=== PATIENT | female | born 1945 | race Caucasian/White ===

== ENCOUNTER 2017-02-04 09:12 | Inpatient (IN) | payer OTHER ==
[~2017-02-04 09:12] MED LIST: ACETAMINOPHEN 325 MG TAB PO ONE; CEFAZOLIN 2 GM/DEXTR 100 ML IV ONE; CHLORHEXIDINE GLUC HIBICLENS 118 ML BTL TP ONE; FAMOTIDINE 20 MG TAB PO ONE; ROPI/epiNEPH/KETOROLAC JOINT COCKTAIL IU ONE; TRANEXAMIC ACID 3,000 MG in NS 50 ML IRR ONE
[2017-02-04] MEDS ORDERED: BUPIVACAINE/EPI 0.5% 30 ML SDV ONE (09:22)
[2017-02-04] MEDS ORDERED: TRANEXAMIC ACID 3,000 MG/50 ML BAG IRR ONE (09:23)
[2017-02-04] MEDS ORDERED: BUPIVACAINE 0.5% 30 ML SDV ONE (09:23)
[2017-02-04] MEDS ORDERED: BUPIVACAINE 0.25% 30 ML SDV ONE (09:23)
[2017-02-04] MEDS ORDERED: VANCOMYCIN 1 GM VIAL ONE (09:23)
[2017-02-04] MEDS ORDERED: CEFAZOLIN 2 GM/DEXTROSE/100 ML BAG IV ONE (09:49)
[2017-02-04] MEDS ORDERED: ACETAMINOPHEN 325 MG TAB ONE ×2 (09:49→14:46)
[2017-02-04] MEDS ORDERED: LIDOCAINE 1% 2 ML INJ ONE (09:49)
[2017-02-04] MEDS ORDERED: FAMOTIDINE 20 MG TAB ONE (09:49)
[2017-02-04] MEDS ORDERED: MIDAZOLAM 2 MG/2 ML VIAL ONE (10:59)
[2017-02-04] MEDS ORDERED: LIDOCAINE 2% 5 ML SDV ONE (11:13)
[2017-02-04] MEDS ORDERED: PROPOFOL/EMULSION 500 MG/50 ML BOTTLE IV ONE (11:13)
[2017-02-04] MEDS ORDERED: POLYETHYLENE GLYCOL 3350 17 GM PKT PO PRN (12:30)
[2017-02-04] MEDS ORDERED: PHARMACY PAIN CONSULT 1 EA MISC PRN (12:30)
[2017-02-04] MEDS ORDERED: LACTULOSE 20 GM/30 ML UDCUP PO PRN (12:30)
[2017-02-04] MEDS ORDERED: PROMETHAZINE HCL 25 MG/ML INJ IVP PRN (12:30)
[2017-02-04] MEDS ORDERED: PROMETHAZINE HCL 25 MG SUPPR PR PRN (12:30)
[2017-02-04] MEDS ORDERED: DIPHENOXYLATE/ATROPINE LOMOTIL 1 TAB PO PRN (12:30)
[2017-02-04] MEDS ORDERED: LR 1,000 ML IV SCH (12:30)
[2017-02-04] MEDS ORDERED: ONDANSETRON DISINTEGRATING 4 MG TAB PO PRN (12:30)
[2017-02-04] MEDS ORDERED: TEMAZEPAM 15 MG CAP PO PRN (12:30)
[2017-02-04] MEDS ORDERED: ONDANSETRON 4 MG/2 ML VIAL IVP PRN (12:30)
[2017-02-04] MEDS ORDERED: MAGNESIUM HYDROXIDE 30 ML UDCUP PO PRN (12:30)
[2017-02-04] MEDS ORDERED: METOCLOPRAMIDE 10 MG/2 ML VIAL IVP PRN (12:30)
[2017-02-04] MEDS ORDERED: BISACODYL 10 MG SUPP PR PRN (12:30)
--- NOTE | 2017-02-04 12:30 | POSTOPPROG ---
Post Op Note Date of Operation: 02/04/17 Surgeon: Salvatore Greer Manager Disaster Recovery: bay greer Anesthesiologist: dr. waters Anesthesia: Spinal, Other (Specify) (adductor canal block) Pre-op Diagnosis: leftk nee OA Post-op Diagnosis: same Indication: left knee pain due to OA that failed conservative measures Procedure: L TKA Findings: severe knee OA Inf/Abcess present in the surg proc area at time of surgery?: No EBL: 50-100
[2017-02-04] MEDS ORDERED: ROPIVACAINE HCL 150 MG/30 ML INJ ONE (12:31)
[2017-02-04] MEDS ORDERED: SUMAtriptan 50 MG TAB PO PRN (12:31)
[2017-02-04] MEDS ORDERED: oxyCODONE IR 5 MG TAB ONE (14:46)
[2017-02-04] MEDS ORDERED: CYCLOBENZAPRINE 10 MG TAB ONE (14:46)
[2017-02-04] MEDS: CYCLOBENZAPRINE 10 MG TAB PO PRN (15:10)
[2017-02-04] MEDS: metFORMIN HCL 500 MG TAB PO SCH (17:25)
[2017-02-04] MEDS: WARFARIN SODIUM 5 MG TAB PO SCH (17:26)
[2017-02-04] MEDS: traMADol 50 MG TAB PO SCH ×2 (17:26→21:34)
[2017-02-04] MEDS: ceFAZolin 2 GM/DEXTROSE 100 ML IV SCH (17:27)
[2017-02-04] MEDS: ACETAMINOPHEN 325 MG TAB PO SCH (17:29)
[2017-02-04] MEDS: SENNOSIDES/DOCUSATE SODIUM TAB PO SCH (19:58)
[2017-02-04] MEDS: oxyCODONE IR 5 MG TAB PO PRN (19:58)
[2017-02-04] MEDS: FAMOTIDINE 20 MG TAB PO SCH (19:58)
[2017-02-04] MEDS: PREGABALIN 75 MG CAP PO SCH (19:58)
[2017-02-04] MEDS: ZOLPIDEM TARTRATE 5 MG TAB PO SCH (21:33)
--- NOTE | 2017-02-05 00:07 | GOP ---
[f rep st] OPERATIVE REPORT DATE OF OPERATION: 02/04/17 SURGEON: Tariq Velez MD MOTOR POOL DRIVER: WILMA Reddy ANESTHESIA: Spinal. PREOPERATIVE DIAGNOSIS: Left knee osteoarthritis. POSTOPERATIVE DIAGNOSIS: Left knee osteoarthritis. PROCEDURE PERFORMED: Left total knee arthroplasty. FINDINGS: ESTIMATED BLOOD LOSS: 30 cc. INDICATIONS: This is a 71-year-old female with severe and progressive pain and deformity of the left knee unresponsive to conservative care. Risks and benefits of the surgical intervention were explained in detail. DESCRIPTION OF PROCEDURE: The patient was brought to the operative room and placed on the table in the supine position. Spinal anesthesia was induced without difficulty. A pneumatic tourniquet was applied about the left proximal thigh, and the leg was prepped and draped in a sterile fashion. The leg pineda was applied. After exsanguination by elevation the tourniquet was inflated to 275 mm of mercury. Incision was made anterior medial from the tibial tuberosity to a point 2 cm proximal to the superior pole of the patella. Medial parapatellar arthrotomy was carried out from the superior pole of the patella and posteriorly in line with the fibers of the Type 2 VMO. Pathology severe medial patellofemoral osteoarthritis. The medial collateral ligament was elevated and the infrapatellar fat pad was resected. The patella was everted and the articular surface was excised. A 35 mm patellar button was placed. The distal femoral guide hole was drilled and the 6- degree alignment osman was placed. An 8 mm distal femoral cut was made without difficulty. Attention was turned to the tibia and a standard 9 mm cut based on the lateral tibial condyle was performed. The tibial articular surface was excised without difficulty. Attention was turned back to the femur and a size 4 Triathlon femoral cutting block was positioned. Anterior, posterior, and chamfer cuts were made, followed by the intercondylar box cut. The knee was extended and the remnants of the medial and lateral meniscus were excised. The posterior capsule was injected with ropivacaine, epinephrine and Toradol. A size 3 MIS mini-keel tibial tray was positioned. Trial reduction was then carried out. There was excellent range of motion, alignment, and stability using the 9 mm polyethylene. All trials were then removed. The joint was thoroughly irrigated and carefully dried. Two packages of cement and 2 grams of vancomycin were mixed in the vacuum mixer and placed on the fixation surfaces of all surfaces of the components. The components were implanted and all excess cement was thoroughly removed. The permanent 9 mm polyethylene was placed without difficulty. The tourniquet was deflated and all bleeders were coagulated. The wound was thoroughly irrigated and closed using interrupted sutures of 2-0 Vicryl for the joint capsule. The subcu was closed with 3-0 Vicryl and the skin with 4-0 Monocryl. Dermabond and Steri-Strips were applied followed by a compressive dressing. The patient was then moved from the operating room to the recovery room in good condition, having tolerated the procedure well. /[id number]/MODL MTDD
[2017-02-05] MEDS: ACETAMINOPHEN 325 MG TAB PO SCH ×5 (00:46→23:01)
[2017-02-05] MEDS: ceFAZolin 2 GM/DEXTROSE 100 ML IV SCH (00:46)
[2017-02-05] MEDS: CYCLOBENZAPRINE 10 MG TAB PO PRN ×2 (00:47→19:27)
[2017-02-05 05:20] LABS: INR 1.07 (0.83-1.16); PROTIME(PATIENT) 13.8 SEC (12.0-15.0)
[2017-02-05 05:24] LABS: HEMATOCRIT 38.8 % (38.0-47.0); HEMOGLOBIN 12.5 g/dL (12.6-16.3)
[2017-02-05] MEDS: LEVOTHYROXINE 88 MCG TAB PO SCH (05:28)
[2017-02-05] MEDS: oxyCODONE IR 5 MG TAB PO PRN ×4 (05:29→20:09)
[2017-02-05] MEDS: buPROPion XL 150 MG TAB PO SCH (07:32)
[2017-02-05] MEDS: diphenhydrAMINE 25 MG CAP PO PRN ×2 (07:32→23:01)
[2017-02-05] MEDS: SENNOSIDES/DOCUSATE SODIUM TAB PO SCH ×2 (07:34→20:08)
[2017-02-05] MEDS: metFORMIN HCL 500 MG TAB PO SCH ×2 (07:35→18:17)
[2017-02-05] MEDS: FAMOTIDINE 20 MG TAB PO SCH ×2 (07:35→20:08)
[2017-02-05] MEDS: ENOXAPARIN 40 MG/0.4 ML SYR SC SCH (07:36)
[2017-02-05] MEDS: PREGABALIN 75 MG CAP PO SCH ×2 (07:36→18:20)
[2017-02-05] MEDS: traMADol 50 MG TAB PO SCH ×3 (09:37→22:25)
--- NOTE | 2017-02-05 13:32 | SOAPPROG ---
SOAP Progress Note Assessment/Plan: Assessment: Patient is doing well POD 1 s/p L TKA Pain management: pain is well controlled on oral pain meds. VTE ppx: recommend coumadin and lovenox, cont NERY and SCDs Anemia: level is expected initially postop. Asymptomatic. Continue to monitor D/c planning: d/c to home tomorrow pending release from PT with support of HH RN and PT for blood draws Plan: 02/05/17 13:30 Subjective: Laly is doing well today, denies SOB, chest pain and N/V. pleased with recovery so far Objective: Vital Signs Temp Pulse Resp BP Pulse Ox 36.5 C 64 16 111/71 94 02/05/17 13:09 02/05/17 13:09 02/05/17 13:09 02/05/17 13:09 02/05/17 13:09 Laboratory Results 02/05/17 04:25 02/04/17 02/05/17 02/06/17 05:59 05:59 05:59 Intake Total 2650 100 Output Total 1430 750 Balance 1220 -650 PT 13.8 SEC (12.0-15.0) 02/05/17 04:25 INR 1.07 (0.83-1.16) 02/05/17 04:25 LLE: incision dressing is clean and dry, NVI, +pf/df ICD10 Worksheet Patient Problems: Problems Problem Status Onset Primary localized osteoarthritis of left knee Acute
--- NOTE | 2017-02-05 14:17 | GDS ---
[f rep st] DISCHARGE SUMMARY ADMISSION DIAGNOSIS: Left knee osteoarthritis. DISCHARGE DIAGNOSIS: Left knee osteoarthritis. PROCEDURE: Left total knee arthroplasty. VTE PROPHYLAXIS: Coumadin and Lovenox recommended. BRIEF DESCRIPTION OF HOSPITAL STAY: Patient was admitted for an elective joint arthroplasty. The p atient tolerated the procedure well and has passed physical therapy. The patient was given appropri ate antibiotic prophylaxis and venous thromboembolism prophylaxis. The patient's pain was well cont rolled on oral pain medication, patient was holding down food, and had urinated. Decision was made to discharge the patient. The patient was given post-operative prescriptions pre-operatively. PLAN: Please follow up as scheduled, February 19, 2017, at 11:00 a.m. /[id number]/MODL
[2017-02-05] MEDS: WARFARIN SODIUM 5 MG TAB PO SCH (15:54)
[2017-02-05] MEDS: ZOLPIDEM TARTRATE 5 MG TAB PO SCH (22:25)
[2017-02-05 22:58] VITALS: RESP 16
[2017-02-06] MEDS: oxyCODONE IR 5 MG TAB PO PRN ×3 (05:05→12:25)
[2017-02-06] MEDS: ACETAMINOPHEN 325 MG TAB PO SCH ×2 (05:05→12:26)
[2017-02-06] MEDS: LEVOTHYROXINE 88 MCG TAB PO SCH (05:06)
[2017-02-06 05:07] LABS: HEMATOCRIT 39.2 % (38.0-47.0); HEMOGLOBIN 12.6 g/dL (12.6-16.3)
[2017-02-06 05:15] LABS: INR 1.08 (0.83-1.16); PROTIME(PATIENT) 13.9 SEC (12.0-15.0)
[2017-02-06 07:22] VITALS: BP 113/81; PULSE 73; TEMP 97.8
[2017-02-06] MEDS: metFORMIN HCL 500 MG TAB PO SCH (08:07)
[2017-02-06] MEDS: ENOXAPARIN 40 MG/0.4 ML SYR SC SCH (08:07)
[2017-02-06] MEDS: PREGABALIN 75 MG CAP PO SCH (08:07)
[2017-02-06] MEDS: buPROPion XL 150 MG TAB PO SCH (08:07)
[2017-02-06] MEDS: traMADol 50 MG TAB PO SCH ×2 (08:07→15:08)
[2017-02-06] MEDS: SENNOSIDES/DOCUSATE SODIUM TAB PO SCH (08:08)
[2017-02-06] MEDS: FAMOTIDINE 20 MG TAB PO SCH (08:08)
[2017-02-06 11:04] VITALS: O2SAT 79
--- NOTE | 2017-02-06 13:09 | PDFACE2FAC ---
Face to Face Encounter 1. I certify that this patient is under my care and that I, or a nurse practitioner or physician's financial administrative assistant working with me, had a atwo-[id number] encounter that meets the physician uflw-mr-[id number] encounter requirements with this patient on 02/06/17. 2. I certify that based on my findings, the following services are medically necessary home health services: [X Nursing] [X Physical Therapy] [ Speech-Language Pathology] 3. The medical condition and clinical findings that support the need for specialized skills, knowledge and judgement of the above services are: [s/p TKA needs assistance, cannot drive, on narcotics, needs labs drawn and PT twice weekly] 4. I certify this patient is homebound* because [the patient's condition restricts their ability to leave their home except with the assistance of another individual or the aid of a supportive device.] must use FWW, cannot drive on narcotics I certify that this patient is confined to his/her home and needs intermittent group home care, physical and/or speech therapy. This patient is under my care and I have authorized home health services. * Homebound is defined by Medicare as follows: absences from home require considerable and tacking effort and or for medical reasons or mandaeism services or are infrequent or of short duration when for other reasons*.
--- NOTE | 2017-02-06 13:11 | PDIAF ---
- Diagnosis Diagnosis: s/p L TKA Code Status: Full Code - Medication Management Discharge Medications: Medications to Continue on Transfer SUMAtriptan [Imitrex 50 MG (*)] 100 mg PO PRN PRN 04/01/13 [Last Taken 01/31/17] Zolpidem Tartrate [Ambien 5MG (*)] 10 mg PO HS 04/01/13 [Last Taken 02/03/17] metFORMIN HCL [Glucophage 500 mg (*)] 500 mg PO BIDMEAL 04/01/13 [Last Taken ] [place]-3 Fatty Acids [Fish Oil 1000 mg (*)] 1,000 mg PO DAILY 04/05/13 [Last Taken 01/21/17] Ergocalciferol [Vitamin D2 (*)] 50,000 unit PO SA 12/29/16 [Last Taken 01/21/17] Herbals/Supplements -Info Only 1 ea PO DAILY 12/29/16 [Last Taken 01/21/17] Levothyroxine [Synthroid 88 mcg (*)] 88 mcg PO DAILY06 12/29/16 [Last Taken ] Pregabalin [Lyrica 75mg (*)] 150 mg PO BID 12/29/16 [Last Taken 02/04/17] Promethazine HCl [Phenergan 25mg (*)] 25 mg PO DAILY PRN 12/29/16 [Last Taken Unknown] buPROPion XL [Wellbutrin 150mg XL] 300 mg PO DAILY 12/29/16 [Last Taken 02/04/17 ] traMADol [Ultram 50 mg (*)] 100 mg PO TID 12/29/16 [Last Taken 02/03/17] Acetaminophen [Tylenol 325mg (*)] 650 mg PO Q6HRS #0 tab 02/05/17 [Last Taken Unknown] Cyclobenzaprine [Flexeril 10 MG (*)] 10 mg PO Q8HRS PRN #0 tab 02/05/17 [Last Taken Unknown] Enoxaparin [Lovenox 40 MG (*)] 40 mg SC DAILY #0 syr 02/05/17 [Last Taken Unknown] Sennosides/Docusate Sodium [Senokot-S] 1 - 2 tab PO BID #0 tab 02/05/17 [Last Taken Unknown] Warfarin Sodium [Coumadin 5MG (*)] 5 mg PO DAILY AT 4PM #0 tab 02/05/17 [Last Taken Unknown] celeCOXIB [Celebrex (*)] 200 mg PO DAILY #0 cap 02/05/17 [Last Taken Unknown] oxyCODONE IR [Oxycodone Ir (*)] 5 - 10 mg PO Q3HRS PRN #0 tab 02/05/17 [Last Taken Unknown] Discharge Medications: Refer to the Discharge Home Medication list for PRN reason. - Orders Services needed: Home Care, Registered Nurse, Physical Therapy Home Care Face to Face: I certify that this patient was under my care and that I had the required slio-ud-[id number] encounter meeting the encounter requirements on the discharge day. My findings support the fact that the patient is homebound as defined in CMS Chapter 7 Medicare Benefits Manual 30.1.1, The condition of the patient is such that there exists a normal inability to leave home and consequently, leaving home would require a considerable and taxing effort. Oxygen: on oxygen 24H until follow up with PCP Diet Recommendation: no restrictions on diet Diet Texture: Regular Texture Diet Abdi Stockings Discontinue Date: daytime x 2 weeks, off at night Wound Care Instructions: remove dressing in 2 weeks, cover for showers Activity/Weight Bearing Restrictions: WBAT - Labs/Radiology PT/INR Date: 02/10/17 (every Thursday and morning x 3 weeks. Call alcon with results at [facility] [phone]) - Follow Up Care Current Providers and Referrals: Salvatore Velez MD [Medical Doctor] - 02/19/17 11:00 am Saturnino Bradley MD [Primary Care Provider] -
--- NOTE | 2017-02-06 14:50 | SOAPPROG ---
SOAP Progress Note Assessment/Plan: Assessment: Patient is doing well POD 2 s/p L TKA Pain management: pain is well controlled on oral pain meds. VTE ppx: recommend coumadin and lovenox, cont NERY and SCDs Anemia: level is expected initially postop. Asymptomatic. Continue to monitor D/c planning: d/c to home tomorrow pending release from PT with support of HH RN and PT for blood draws oxygen sat: recommend home O2 Plan: 02/05/17 13:30 02/06/17 14:49 Subjective: Laly is doing well. Denies SOB, chest pain and N/V. Objective: Vital Signs Temp Pulse Resp BP Pulse Ox 36.6 C 73 16 113/81 H 79 L 02/06/17 07:21 02/06/17 07:21 02/06/17 07:21 02/06/17 07:21 02/06/17 09:55 Laboratory Results 02/06/17 04:20 02/05/17 02/06/17 02/07/17 05:59 05:59 05:59 Intake Total 2650 1100 Output Total 1430 1900 600 Balance 1220 -800 -600 PT 13.9 SEC (12.0-15.0) 02/06/17 04:20 INR 1.08 (0.83-1.16) 02/06/17 04:20 LLE; incision dressing is clean and dry ICD10 Worksheet Patient Problems: Problems Problem Status Onset Primary localized osteoarthritis of left knee Acute
[2017-02-06] MEDS: WARFARIN SODIUM 5 MG TAB PO SCH (15:08)
== END 2017-02-06 16:17 | disposition home health service (06) | DRG 470 ==
LOC: F3N 09:12
PROVIDERS: ADMIT Orthopaedic Surgery; ATTEND Orthopaedic Surgery
PROC: 0SRD0J9 Replacement of Left Knee Joint with Synthetic Substitute, Cemented, Open Approach (ICD-10-PCS; principal; 2017-02-04 11:15)
DX: M17.12 Unilateral primary osteoarthritis, left knee (principal); I10 Essential (primary) hypertension; E11.9 Type 2 diabetes mellitus without complications; E03.9 Hypothyroidism, unspecified; E78.5 Hyperlipidemia, unspecified
CPT/HCPCS: 97110-GP; 97116-GP; 97161-GP; 97165-GO; 97530-GP; 97535-GO; C1713; G8978-GP-CK; G8979-GP-CI; G8980-GP-CI; G8987-GO-CI; G8988-GO-CI; G8989-GO-CI; J0171; J0690; J1650; J1885; J2250; J2550; J2704; J2795; J3370

== ENCOUNTER → 2017-05-26 | Outpatient (CLI) | payer OTHER | LOC: FIMAGING 10:58 | PROVIDERS: ATTEND Orthopaedic Surgery | DX: M79.661 Pain in right lower leg (principal) ==

== ENCOUNTER 2018-07-28 11:57 | Inpatient (IN) | payer OTHER ==
[~2018-07-28 11:57] MED LIST changes: -ACETAMINOPHEN 325 MG TAB PO ONE; -CEFAZOLIN 2 GM/DEXTR 100 ML IV ONE; -CHLORHEXIDINE GLUC HIBICLENS 118 ML BTL TP ONE; -FAMOTIDINE 20 MG TAB PO ONE; -ROPI/epiNEPH/KETOROLAC JOINT COCKTAIL IU ONE; +ROPIVACAINE 0.2% 80 MG, EPINEPHrine 0.2 MG, KETOROLAC TROMETHAMINE 30 MG in SYRINGE 0 ML IU ONE; +TRANEXAMIC ACID 3,000 MG in NS (SYRINGE) 50 ML IRR ONE; -TRANEXAMIC ACID 3,000 MG in NS 50 ML IRR ONE
[2018-08-18] MEDS ORDERED: ROPIVACAINE 0.2% 80 MG, EPINEPHrine 0.2 MG, KETOROLAC TROMETHAMINE 30 MG in SYRINGE 0 ML IU ONE (06:00)
[2018-08-18] MEDS ORDERED: TRANEXAMIC ACID 3,000 MG in NS (SYRINGE) 50 ML IRR ONE (06:00)
--- NOTE | 2018-08-18 06:28 | PDHPUP ---
History & Physical Update H&P update statement: This history and physical update is based on an assessment of the patient which was completed after admission or registration (within 24 hours), but prior to the surgery/procedure. H&P update: H&P reviewed & patient examined, no change in patient's condition since H&P completed
[2018-08-18] MEDS ORDERED: FAMOTIDINE 20 MG TAB PO ONE (11:25)
[2018-08-18] MEDS ORDERED: ACETAMINOPHEN 325 MG TAB PO ONE (11:25)
[2018-08-18] MEDS ORDERED: ceFAZolin 2 GM/DEXTROSE 100 ML IV ONE (11:25)
[2018-08-18] MEDS ORDERED: DEXAMETHASONE 4 MG/ML VIAL IVP ONE (11:25)
[2018-08-18] MEDS ORDERED: LR 1,000 ML IV ONE (11:26)
[2018-08-18] MEDS ORDERED: LIDOCAINE 1% 2 ML INJ ID PRN (11:26)
[2018-08-18] MEDS ORDERED: VANCOMYCIN 1 GM VIAL ONE (12:59)
[2018-08-18] MEDS ORDERED: TRANEXAMIC ACID 3,000 MG/50 ML BAG IRR ONE (12:59)
[2018-08-18] MEDS ORDERED: PROPOFOL 200 MG/20 ML VIAL ONE ×4 (13:09→15:33)
[2018-08-18] MEDS ORDERED: fentaNYL 100 MCG/2 ML INJ ONE (13:09)
[2018-08-18] MEDS ORDERED: DEXAMETHASONE 4 MG/ML VIAL ONE ×2 (13:10)
--- NOTE | 2018-08-18 13:13 | PDANEPAE ---
ANE Past Medical History - Cardiovascular History Hx Hypertension: Yes Hx Arrhythmias: No Hx Chest Pain: No Hx Coronary Artery / Peripheral Vascular Disease: No Hx CHF / Valvular Disease: No Hx Palpitations: No Cardiovascular History Comment: DYSLIPIDEMIA. HX OF HTN NOT CURRENTLY. FOLLOWED BY [facility] FOR ABN ECGs - Pulmonary History Hx COPD: No Hx Asthma/Reactive Airway Disease: No Hx Recent Upper Respiratory Infection: No Hx Oxygen in Use at Home: No Hx Sleep Apnea: No Sleep Apnea Screening Result - Last Documented: Negative Pulmonary History Comment: SEASONAL ASTHMA - Neurologic History Hx Cerebrovascular Accident: No Hx Seizures: No Hx Dementia: No Neurologic History Comment: MIGRAINES - Endocrine History Hx Diabetes: Yes Obesity: moderate Endocrine History Comment: DM II. HX OF THYROIDECTOMY - Renal History Hx Renal Disorders: No - Liver History Hx Hepatic Disorders: No - Neurological & Psychiatric Hx Hx Neurological and Psychiatric Disorders: Yes Neurological / Psychiatric History Comment: INSOMNIA. DEPRESSION - Cancer History Hx Cancer: Yes Cancer History Comment: SQUAMOUS CELL REMOVED - Congenital Disorder History Hx Congenital Disorders: No - GI History Hx Gastrointestinal Disorders: Yes Gastrointestinal History Comment: REFLUX - Other Health History Other Health History: WEARS GLASSES. FIBROMYALGIA. OSTEOPENIA - Chronic Pain History Chronic Pain: Yes (CHRONIC PAIN ISSUES) - Surgical History Prior Surgeries: LEFT TKA WITH DR ALEJANDRE 02/04/17. R TKA X2. THYROIDECTOMY WITH BECKIE 04/08/13. HERNIA REPAIR. ANKLE SURG. HUNTER THUMBS. SHOULDER REPAIR. R FOOT BONE SPUR ANE Review of Systems Review of Systems: - Exercise capacity METS (RN): 4 METS ANE Patient History - Allergies Allergies/Adverse Reactions: adhesive Allergy (Verified 07/26/18 12:48) Rash codeine [Codeine] Allergy (Verified 07/26/18 12:48) MAKES ME VERY NAUSEATED ALL OPIATES Allergy (Uncoded 07/26/18 12:48) UPSET STOMACH/NAUSEA - Home Medications Home medications: home medication list seen and reviewed Home Medications: SUMAtriptan [Imitrex 50 MG (*)] 100 mg PO PRN PRN 04/01/13 [Last Taken 08/10/18] Zolpidem Tartrate [Ambien 5MG (*)] 10 mg PO HS 04/01/13 [Last Taken 08/17/18 20: 00] metFORMIN HCL [Glucophage 500 mg (*)] 500 mg PO BIDMEAL 04/01/13 [Last Taken 12/30 08:00] [place]-3 Fatty Acids [Fish Oil 1000 mg (*)] 1,000 mg PO DAILY 04/05/13 [Last Taken 08/10/18] Ergocalciferol [Vitamin D2 (*)] 50,000 unit PO SA 12/29/16 [Last Taken 08/10/18] Levothyroxine [Synthroid 88 mcg (*)] 88 mcg PO DAILY06 12/29/16 [Last Taken 12/30 18:00] Promethazine HCl [Phenergan 25mg (*)] 25 mg PO DAILY PRN 12/29/16 [Last Taken Unknown] buPROPion XL [Wellbutrin 150mg XL] 300 mg PO DAILY 12/29/16 [Last Taken 08:00] traMADol [Ultram 50 mg (*)] 100 mg PO TID 12/29/16 [Last Taken 08/18/18 08:00] Advair Hfa 230/21 1 - 2 puffs IH BID 07/23/18 [Last Taken 08/17/18 16:00] Atorvastatin Calcium [Lipitor 40 mg (*)] 40 mg PO DAILY@1800 07/23/18 [Last Taken 08/17/18 18:00] Gabapentin 600 mg PO TID 07/23/18 [Last Taken 08/18/18 08:00] Meloxicam [Meloxicam] 15 mg PO DAILY 07/23/18 [Last Taken 07/20/18] OLANZapine [ZyPREXA 2.5 mg (*)] 2.5 mg PO HS PRN 07/23/18 [Last Taken 08/17/18 20:00] Tizanidine HCl [Tizanidine HCl] 4 mg PO Q4 PRN 07/23/18 [Last Taken 08/17/18 18: 00] cycloSPORINE 0.05% [Restasis Opht Drops(*)] 1 drop EACHEYE BID 07/23/18 [Last Taken 08/18/18 08:00] - NPO status NPO Status: no food or drink >8 hours NPO Since - Liquids (Date): 08/17/18 NPO Since - Liquids (Time): 20:00 NPO Since - Solids (Date): 08/18/18 NPO Since - Solids (Time): 10:00 - Anes Hx Anes Hx: no prior problems (Reports 2 days of amnesia following last TKA.) - Smoking Hx Smoking Status: Never smoked - Family Anes Hx Family Hx Anesthesia Complications: ADOPTED ANE Labs/Vital Signs - Labs Result Diagrams: 08/18/18 12:10 - Vital Signs Blood Pressure: 138/88 Heart Rate: 64 Respiratory Rate: 16 O2 Sat (%): 93 Height: 161 cm Weight: 85.4 kg ANE Physical Exam - Airway Neck exam: FROM Mallampati Score: Class 2 Mouth exam: normal dental/mouth exam - Pulmonary Pulmonary: no respiratory distress, no rales or rhonchi, clear to auscultation - Cardiovascular Cardiovascular: regular rate and rhythym, no murmur, rub, or gallop - ASA Status ASA Status: II ANE Anesthesia Plan Anesthesia Plan: spinal Regional Anesthesia: adductor canal FNB
[2018-08-18] MEDS ORDERED: ONDANSETRON 4 MG/2 ML VIAL ONE (13:24)
[2018-08-18] MEDS ORDERED: diphenhydrAMINE 25 MG CAP PO PRN (14:09)
[2018-08-18] MEDS ORDERED: BISACODYL 10 MG SUPP PR PRN (14:09)
[2018-08-18] MEDS ORDERED: TEMAZEPAM 15 MG CAP PO PRN (14:09)
[2018-08-18] MEDS ORDERED: PROMETHAZINE HCL 25 MG SUPPR PR PRN (14:09)
[2018-08-18] MEDS ORDERED: ONDANSETRON 4 MG/2 ML VIAL IVP PRN ×2 (14:09→15:39)
[2018-08-18] MEDS ORDERED: PROMETHAZINE HCL 25 MG/ML INJ IVP PRN ×2 (14:09→15:39)
[2018-08-18] MEDS ORDERED: POLYETHYLENE GLYCOL 3350 17 GM PKT PO PRN (14:09)
[2018-08-18] MEDS ORDERED: DIPHENOXYLATE/ATROPINE LOMOTIL 1 TAB PO PRN (14:09)
[2018-08-18] MEDS ORDERED: METOCLOPRAMIDE 10 MG/2 ML VIAL IVP PRN (14:09)
[2018-08-18] MEDS ORDERED: LACTULOSE 20 GM/30 ML UDCUP PO PRN (14:09)
[2018-08-18] MEDS ORDERED: MAGNESIUM HYDROXIDE 30 ML UDCUP PO PRN (14:09)
[2018-08-18] MEDS ORDERED: ONDANSETRON DISINTEGRATING 4 MG TAB PO PRN (14:09)
[2018-08-18] MEDS ORDERED: OLANZapine 2.5 MG TAB PO PRN (14:14)
[2018-08-18] MEDS ORDERED: D50W 25 GM/50 ML SYR IVP PRN (14:17)
[2018-08-18] MEDS ORDERED: LR 1,000 ML IV SCH (14:30)
[2018-08-18] MEDS ORDERED: ACETAMINOPHEN 500 MG TAB PO PRN (15:39)
[2018-08-18] MEDS ORDERED: LR 500 ML IV PRN (15:39)
[2018-08-18] MEDS ORDERED: fentaNYL 100 MCG/2 ML INJ IVP PRN (15:39)
[2018-08-18] MEDS ORDERED: NALOXONE HCL 0.4 MG/ML INJ IVP PRN (15:39)
--- NOTE | 2018-08-18 16:10 | POSTOPPROG ---
Post Op Note Date of Operation: 08/18/18 Surgeon: Salvatore Velez Service Aide: Tayo Hurley MD, Yvonne ROLLE Anesthesiologist: Mary Ellen Anesthesia: Spinal Pre-op Diagnosis: R knee Failed TKA Post-op Diagnosis: same Indication: pain, instability Procedure: R knee rev Tibial component Findings: loose tibial component Inf/Abcess present in the surg proc area at time of surgery?: No EBL: 50-100
--- NOTE | 2018-08-18 16:32 | POSTANESTH ---
Post Anesthetic Evaluation Cardiovascular Status: Normal, Stable, Similar to Pre-Op Cond Respiratory Status: Normal, Stable, Similar to Pre-op Cond. Level of Consciousness/Mental Status: Can Participate in Eval, Alert and Oriented Pain Control: Adequate, Prn Tx Ordered (Adductor canal nerve block in PACU. U/ S used to inject 20 ml 0.25% bupiv + epi incrementally. No evident complications.) Nausea/Vomiting Control: Adequate, Prn Tx Ordered Complications Possibly Related to Anesthesia: None Noted
--- NOTE | 2018-08-18 16:49 | PDMN ---
Medical Necessity Medical necessity: Pt meets inpt criteria per MD order and [facility] S-700, Knee Arthroplasty, Total, Revision. 73 y/o w/R knee failed TKA, admitted for R knee revision, tibial component.
[2018-08-18] MEDS: GABAPENTIN 300 MG CAP PO SCH ×3 (18:20→21:39)
[2018-08-18] MEDS: ATORVASTATIN CALCIUM 40 MG TAB PO SCH (18:26)
[2018-08-18] MEDS: ACETAMINOPHEN 325 MG TAB PO SCH ×2 (18:26→23:17)
[2018-08-18] MEDS: metFORMIN HCL 500 MG TAB PO SCH (18:26)
[2018-08-18] MEDS: INSULIN REGULAR HUMAN 100 UNIT/ML UNIT SC SCH ×2 (18:45→21:53)
[2018-08-18] MEDS: ADVAIR IH SCH ×2 (20:22→21:30)
[2018-08-18] MEDS: SUMAtriptan 50 MG TAB PO PRN ×2 (20:27→21:54)
[2018-08-18] MEDS: ASPIRIN 81 MG CHEWABLE TAB PO SCH (21:39)
[2018-08-18] MEDS: ceFAZolin 2 GM/DEXTROSE 100 ML IV SCH (21:39)
[2018-08-18] MEDS: FAMOTIDINE 20 MG TAB PO SCH (21:40)
[2018-08-18] MEDS: SENNOSIDES/DOCUSATE SODIUM TAB PO SCH (21:40)
[2018-08-18] MEDS: cycloSPORINE 0.05% 30 DROPERETTE/BOX EACHEYE SCH (21:41)
[2018-08-18] MEDS: oxyCODONE IR 5 MG TAB PO PRN (23:17)
[2018-08-19] MEDS: ZOLPIDEM TARTRATE 5 MG TAB PO PRN ×2 (01:12→23:09)
[2018-08-19] MEDS: traMADol 50 MG TAB PO PRN ×3 (01:12→23:09)
[2018-08-19] MEDS: CYCLOBENZAPRINE 10 MG TAB PO PRN ×2 (03:39→16:46)
[2018-08-19] MEDS: oxyCODONE IR 5 MG TAB PO PRN ×4 (03:39→18:25)
[2018-08-19] MEDS: LEVOTHYROXINE 88 MCG TAB PO SCH (05:54)
[2018-08-19] MEDS: ceFAZolin 2 GM/DEXTROSE 100 ML IV SCH (05:54)
[2018-08-19] MEDS: ACETAMINOPHEN 325 MG TAB PO SCH ×4 (05:54→23:09)
[2018-08-19] MEDS: INSULIN REGULAR HUMAN 100 UNIT/ML UNIT SC SCH ×4 (08:11→21:26)
[2018-08-19] MEDS: buPROPion XL 150 MG TAB PO SCH (08:38)
[2018-08-19] MEDS: GABAPENTIN 300 MG CAP PO SCH ×3 (08:39→21:27)
[2018-08-19] MEDS: FAMOTIDINE 20 MG TAB PO SCH ×2 (08:39→21:27)
[2018-08-19] MEDS: SENNOSIDES/DOCUSATE SODIUM TAB PO SCH ×2 (08:40→21:26)
[2018-08-19] MEDS: ASPIRIN 81 MG CHEWABLE TAB PO SCH ×2 (08:40→21:27)
[2018-08-19] MEDS: metFORMIN HCL 500 MG TAB PO SCH ×2 (08:40→18:25)
[2018-08-19] MEDS: ADVAIR IH SCH ×2 (08:42→20:15)
[2018-08-19] MEDS: cycloSPORINE 0.05% 30 DROPERETTE/BOX EACHEYE SCH ×2 (08:43→21:26)
--- NOTE | 2018-08-19 08:56 | SOAPPROG ---
SOAP Progress Note Assessment/Plan: Assessment: Patient is doing well POD 1 s/p R TKA, tibial component revision Pain management: pain is well controlled on oral pain meds. VTE ppx: recommend aspirin 81 mg BID for 4 weeks, cont NERY and SCDs D/c planning: recommend SNF placement as we have recommended that patient due FWW for 3 weeks postop and for postoperative care as patient lives alone. Appreciate case management's assistance in arranging SNF placement either today or tomorrow, left timing up to patient and availability of SNF placement. patient states she did not get great rest at the hospital Plan: 08/19/18 08:53 08/19/18 08:56 Subjective: nazario is doing well, denies SOB, chest pain and n/v states she did not get much sleep last night Objective: Vital Signs Temp Pulse Resp BP Pulse Ox 36.4 C 57 L 16 145/82 H 97 08/19/18 07:49 08/19/18 07:49 08/19/18 07:49 08/19/18 07:49 08/19/18 07:49 Microbiology 08/18/18 14:06 Gram Stain - Final Knee - Eswab Laboratory Results 08/19/18 03:20 08/19/18 03:20 08/18/18 08/19/18 08/20/18 05:59 05:59 05:59 Intake Total 2075 Output Total 1375 Balance 700 RLE: incision dressing is clean and dry, NVI, +pf/df ICD10 Worksheet Patient Problems: Problems Problem Status Onset Failed total right knee replacement Acute History of revision of total knee arthroplasty Acute Primary localized osteoarthritis of left knee Acute
--- NOTE | 2018-08-19 09:29 | GOP ---
DATE OF OPERATION: 08/18/2018 SURGEON: Tariq Velez MD GUEST SERVICES DIRECTOR: Daniel Hurley MD and WILMA Reddy. PREOPERATIVE DIAGNOSIS: Right knee failed total knee arthroplasty. POSTOPERATIVE DIAGNOSIS: Right knee failed total knee arthroplasty. PROCEDURE PERFORMED: Right knee tibial component revision. FINDINGS: ESTIMATED BLOOD LOSS: 50 cc. INDICATIONS: The patient is a 73-year-old female who had a failed right total knee arthroplasty. Di scussed the risks and benefits with the patient. She was encouraged to undergo revision a rthroplasty. Informed consent was obtained. DESCRIPTION OF PROCEDURE: The patient was identified in the preoperative holding area. Her right lo wer extremity was marked. She was then brought back to the operating room. After induction of anest hesia, she was placed supine on the table with a nonsterile tourniquet on her right upper thigh. Sh e was then prepped and draped in the usual sterile fashion. A time-out was taken for patient lateral ity, procedure, allergies, and antibiotic status. We then proceeded to make an incision through her prior incision, after elevating the tourniquet. The tourniquet was up for a total of 95 minutes at 2 50. We did a medial parapatellar portal. We sent a swab of the fluid for Gram stain and culture. W e did an injection along the arthrotomy line. Noted some scar tissue and inflamed tissue. This was removed. We were able to see the tibia was grossly loose. The femur was well fixed. We removed the tibial polyethylene and the tibia component with little difficulty, removing any excess cement. We used hand reamers to enter into the distal canal. We then planned for cone, reamed up to a size C, p laced our trial cone in place with trial size 2 tibial implant with 10 mm wedges. This was taken thr ough a range of motion and found to be stable with a 15 mm poly. The patient had intact collateral l igaments. We then removed the trial components. The incision was copiously irrigated. Tranexamic a tim was applied. We then placed our press-fit cone size C on the metaphyseal region. We then cement ed through the cone, the final implant, which was a [employer] 100 mm size 2 wedge step x2 with a 7 5 mm x 10 mm fluted stem. A 17.5 mm thickness was placed. This gave excellent stability and range of motion. The incision was copiously irrigated, and the incision was closed in layers. T he patient was placed in a sterile dressing and brought to PACU in good condition with a well-perfuse d limb. The plan for the next week will be weightbearing as tolerated and use a walker. /[id number]/MODL
--- NOTE | 2018-08-19 13:53 | ASMTCMCOM ---
CM Note CM Note Notes: Pt had planned TKA, resides alone. PT rec SNF. Pt accepted at [facility] and can accept pt today or tomorrow, pt prefers tomorrow. CM to follow. D/c plan of care: [facility] Date Signed: 08/19/2018 01:52 PM Electronically Signed By:XIOMARA Way
[2018-08-19] MEDS: SUMAtriptan 50 MG TAB PO PRN (16:46)
[2018-08-19] MEDS: ATORVASTATIN CALCIUM 40 MG TAB PO SCH (18:25)
[2018-08-20] MEDS: LEVOTHYROXINE 88 MCG TAB PO SCH (05:08)
[2018-08-20] MEDS: CYCLOBENZAPRINE 10 MG TAB PO PRN (05:08)
[2018-08-20] MEDS: oxyCODONE IR 5 MG TAB PO PRN ×2 (05:08→08:23)
[2018-08-20] MEDS: ACETAMINOPHEN 325 MG TAB PO SCH ×2 (05:08→14:03)
[2018-08-20 07:52] VITALS: BP 106/58
[2018-08-20] MEDS: INSULIN REGULAR HUMAN 100 UNIT/ML UNIT SC SCH ×2 (08:19→11:33)
[2018-08-20] MEDS: ADVAIR IH SCH (08:20)
[2018-08-20] MEDS: buPROPion XL 150 MG TAB PO SCH (08:21)
[2018-08-20] MEDS: GABAPENTIN 300 MG CAP PO SCH (08:22)
[2018-08-20] MEDS: metFORMIN HCL 500 MG TAB PO SCH (08:22)
[2018-08-20] MEDS: SENNOSIDES/DOCUSATE SODIUM TAB PO SCH (08:23)
[2018-08-20] MEDS: FAMOTIDINE 20 MG TAB PO SCH (08:24)
[2018-08-20] MEDS: ASPIRIN 81 MG CHEWABLE TAB PO SCH (08:24)
[2018-08-20] MEDS: cycloSPORINE 0.05% 30 DROPERETTE/BOX EACHEYE SCH (09:18)
--- NOTE | 2018-08-20 12:32 | PDIAF ---
- Diagnosis Diagnosis: s/p Right knee revision TKA Code Status: Full Code - Medication Management Discharge Medications: electronically signed and located in the Home Medication List. - Orders Diet Recommendation: no restrictions on diet Diet Texture: Regular Texture Diet Wound Care Instructions: see additional instructions Additional Instructions: Joint Protocol-Knee Replacement Follow up with Dr. Rubin office as scheduled After surgery instructions: You received an adductor canal nerve block yesterday. It alleviates pain for approximately 30 hours. Once the numbness to your anterior magana wears off, your pain will increase. Start taking narcotics even low dose narcotic pain meds as the numbness decreases Take Aspirin 81mg by mouth morning and evening for 4 weeks (helps to prevent blood clots) Wear thigh high NERY hose on both legs during the daytime for 2 weeks (helps to prevent blood clots and decrease swelling in the surgical leg). It is ok to remove NERY hose at night time to give your legs a break. It is common for swelling and bruising to occur in the entire surgical leg even extending to the foot, if concerned call Dr. Navarro office [phone] Elevate the surgical leg with the ankle above the hip several times a day. ~ Ideally anytime you are resting throughout the day. Attempt to keep the knee straight while elevating by placing pillows under the ankle instead of the knee to elevate. This may be painful, so please do as much as tolerated. ~This will help you achieve full knee extension. Use a walker for 21 days Start outpatient physical therapy once out of SNF Wear an ligia wrap on the knee for 3-4 days after surgery, then it is no longer needed Do exercises in the book 2-3 times a day Ice at least 3-5 times a day for 30 minutes each time, if not more often. ~~We also recommend using the ice machine before falling asleep to help with pain If you have further questions that are not addressed here, please look at the information packet handed to you at the preop appointment. ~Most will be answered on the FAQs, after surgery instructions and incision care pages. *IF YOU HAVE A LIFE THREATENING EMERGENCY, CALL 911. FOR NON-LIFE THREATENING ISSUES, PLEASE CALL DR. RUBIN OFFICE FIRST. A PHYSICIAN IS RESIDENTIAL PROGRAM COORDINATOR 06/04. Incision/Dressing Care: May shower tomorrow, Incision dressing is waterproof. Do not soak in water, but shower is ok. Keep the incision (velasco) dressing clean and dry. If the incision dressing gets soiled or wet underneath, change dressing to the dressing given to you by the hospital. (velasco dressing will turn black if drainage occurs) Remove incision dressing (velasco one) two weeks after surgery. ~Leave steri strips alone. ~They will fall off on their own. Do not have anyone else remove the incision dressing prior to the stated recommendation (2 weeks after surgery). ~If there are incision concerns, contact Dr. Navarro office. ~(Dr. Velez may remove earlier if concerns arise) If incision site (velasco dressing) has drainage call Dr. Navarro office, . ~ Dr. Velez or his PAs may ask you to come into the office for further evaluation - Follow Up Care Current Providers and Referrals: Salvatore Velez MD [Medical Doctor] - Luther Allred [Primary Care Provider] - Yvonne Velez PA [Physician Live In Housekeeper] - 09/02/18 11:15 am
--- NOTE | 2018-08-20 13:47 | SOAPPROG ---
SOAP Progress Note Assessment/Plan: Assessment: Patient is doing well POD 2 s/p R TKA, tibial component revision Pain management: pain is well controlled on oral pain meds. VTE ppx: recommend aspirin 81 mg BID for 4 weeks, cont NERY and SCDs D/c planning: recommend SNF placement today and FWW for 3 weeks Plan: 08/19/18 08:53 08/19/18 08:56 08/20/18 13:46 Subjective: doing well, pain well controlled Objective: Vital Signs Temp Pulse Resp BP Pulse Ox 36.4 C 58 L 14 106/58 L 91 L 08/20/18 07:51 08/20/18 07:51 08/20/18 07:51 08/20/18 07:51 08/20/18 07:51 Microbiology 08/18/18 14:06 Gram Stain - Final Knee - Eswab Laboratory Results 08/20/18 05:32 08/19/18 03:20 08/19/18 08/20/18 08/21/18 05:59 05:59 05:59 Intake Total 2075 1700 Output Total 1375 1000 200 Balance 700 700 -200 RLE: incision dressing is clean and dry, NVI ICD10 Worksheet Patient Problems: Problems Problem Status Onset Failed total right knee replacement Acute History of revision of total knee arthroplasty Acute Primary localized osteoarthritis of left knee Acute
[2018-08-20] MEDS: traMADol 50 MG TAB PO PRN (14:03)
--- NOTE | 2018-08-20 15:20 | ASMTLACE ---
JOCELYN Length of stay for Answers: 3 days current admission Acuity / Level of Answers: Yes Care: Did the patient have an inpatient admission? Comorbidities - select Answers: Diabetes (uncontrolled or all that apply controlled) Opioid dependence / Chronic pain Other Notes: HTN # of Emergency department Answers: 0 visits in the last 6 months Social determinants Answers: Mental health diagnosis (anxiety, depression, pers onality disorders, etc.) Score: 15 Date Signed: 08/20/2018 03:20 PM Electronically Signed By:XIOMARA Way
--- NOTE | 2018-08-20 15:21 | ASMTCMCOM ---
CM Note CM Note Notes: Pt medically stable for d/c to [facility]. WC transport scheduled for 1500. Orders sent in [employer]. AUGUSTO Esparza to call report. Date Signed: 08/20/2018 03:21 PM Electronically Signed By:XIOMARA Way
--- NOTE | 2018-08-20 15:48 | ASDISCHSUM ---
Discharge Information Plan Status:SNF Medically Cleared to Leave: Discharge Date:08/20/2018 03:35 PM CM D/C Disposition: ADT D/C Disposition:[facility] Facility Projected Discharge Date:08/19/2018 11:00 AM Transportation at D/C: Discharge Delay Reason: Follow-Up Date:08/19/2018 11:00 AM Discharge Slot: Final Diagnosis: Placement Information Referral Type:*Jail/SNF Referral ID:[id number] Provider Name:Carrie Hinson Address 1:[address] [facility] Phone Number: Address 2: Fax Number: City:[place] Selection Factors: State:[place] Patient Contact Information Contact Name:EZEQUIELHONEY Relationship:Son Address: City: [facility] Phone: [facility] Code:[place] Email: Financial Information Financial Class:Medicare Advantage Plans Primary Plan Desc:[facility] [employer] PL[employer] Primary Plan Number:[id number] Secondary Plan Desc: Secondary Plan Number: Assessment Information LACE LACE Length of stay for Answers: 3 days current admission Acuity / Level of Answers: Yes Care: Did the patient have an inpatient admission? Comorbidities - select Answers: Diabetes (uncontrolled or all that apply controlled) Opioid dependence / Chronic pain Other Notes: HTN # of Emergency department Answers: 0 visits in the last 6 months Social determinants Answers: Mental health diagnosis (anxiety, depression, pers onality disorders, etc.) Score: 15 Date Signed: 08/20/2018 03:20 PM Electronically Signed By:XIOMARA Way [facility] Progress Note CM Sepideh SANCHEZ Note Notes: Pt had planned TKA, resides alone. PT rec SNF. Pt accepted at [facility] and can accept pt today or tomorrow, pt prefers tomorrow. CM to follow. D/c plan of care: [facility] Date Signed: 08/19/2018 01:52 PM Electronically Signed By:XIOMARA Way [facility] CM Progress Note CM Note CM Note Notes: Pt medically stable for d/c to [facility]. WC transport scheduled for 1500. Orders sent in [employer]. AUGUSTO Esparza to call report. Date Signed: 08/20/2018 03:21 PM Electronically Signed By:XIOMARA Way Intervention Information Intervention Type:*IM-Signed Date of Service:08/20/2018 03:07 PM Patient Type:Inpatient Staff Member:Ifrah Marie Hours: Discipline: Severity: Comment:
== END 2018-08-20 15:35 | DRG 468 ==
LOC: F3E 08-18 10:46 → EDSTATUS 08-18 12:00 → F3N 08-18 17:44
PROVIDERS: ADMIT Orthopaedic Surgery; ATTEND Orthopaedic Surgery
PROC: 0SRV0J9 Replacement of Right Knee Joint, Tibial Surface with Synthetic Substitute, Cemented, Open Approach (ICD-10-PCS; principal; 2018-08-18 13:00)
PROC: 0SPV0JZ Removal of Synthetic Substitute from Right Knee Joint, Tibial Surface, Open Approach (ICD-10-PCS; principal; 2018-08-18 13:00)
DX: T84.092A Other mechanical complication of internal right knee prosthesis, initial encounter (principal); G89.4 Chronic pain syndrome; F32.9 Major depressive disorder, single episode, unspecified; E11.9 Type 2 diabetes mellitus without complications; M81.0 Age-related osteoporosis without current pathological fracture; I10 Essential (primary) hypertension; E78.5 Hyperlipidemia, unspecified; J45.998 Other asthma
CPT/HCPCS: 97110-GP; 97116-GP; 97161-GP; C1713; G8978-GP-CK; G8979-GP-CI; J0171; J0690; J1100; J1815; J1885; J2405; J2704; J2795; J3010; J3370